=== PATIENT | male | born 1995 | race Caucasian/White ===

== ENCOUNTER 2018-11-14 02:08 | Emergency (ER) | payer SELFPAY ==
[~2018-11-14] VITALS: Ht 180.3 cm; Wt 73.5 kg
[2018-11-14 02:18] VITALS: Ht 180.3 cm; Wt 73.5 kg
[2018-11-14 03:53] VITALS: BP 149/78
== END 2018-11-14 03:54 | disposition other institution (70) ==
LOC: ED 02:08
DX: S00.81XA Abrasion of other part of head, initial encounter (principal); S50.311A Abrasion of right elbow, initial encounter; Y08.89XA Assault by other specified means, initial encounter; Y93.89 Activity, other specified; Y92.89 Other specified places as the place of occurrence of the external cause; Y99.8 Other external cause status
CPT/HCPCS: 90715

== ENCOUNTER 2018-11-14 02:08 | Emergency (ER) | payer OTHER | END 2018-11-14 03:54 | disposition other institution (70) | LOC: ED 02:08 | DX: Z02.89 Encounter for other administrative examinations (principal) ==